=== PATIENT | female | born 1965 | race Caucasian/White ===

== ENCOUNTER 2019-02-17 01:18 | Emergency (ER) | payer BC, SELFPAY ==
[2019-02-17] MEDS ORDERED: Lorazepam 1 MG TAB ONE (01:55)
[2019-02-17] MEDS ORDERED: EPINEPHrine 1 MG/ML AMP ONE ×2 (01:55→01:59)
[2019-02-17 02:14] LABS: #Basophils 0.2 thou/uL (0.0-0.2); #Eosinphils 0.5 thou/uL (0.0-0.7); #Lymphocytes 3.9 thou/uL (1.20-3.40); #Monocytes 0.8 thou/uL (0.11-0.59); %Basophils 1.7 % (0.0-1.0); %Eosinophils 5.2 % (0.0-10.0); %Lymphocytes 41.8 % (21.0-51.0); %Monocytes 8.8 % (0.0-10.0); %Neutrophils 42.5 % (42.0-75.0); Hemoglobin 13.7 g/dL (12.0-16.0); Mean Corpuscular HGB CONC 31.3 g/dL (32.0-36.0); Mean Corpuscular Hemoglobin 31.2 pg (27.0-31.0); Mean Corpuscular Volume 99.7 fL (78.0-98.0); Mean Platelet Volume 7.1 fL (7.4-10.4); Platelet Count 337 thou/uL (130-400); RBC Distribution Width 11.3 % (11.5-14.5); Red Blood Cell (RBC) Count 4.38 mill/uL (4.20-5.40); White Blood Cell (WBC) Count 9.4 thou/uL (4.8-10.8)
[2019-02-17 02:36] LABS: ALT (SGPT) 16 U/L (8-55); AST (SGOT) 13 U/L (5-34); Albumin 4.3 g/dL (3.5-5.0); Alkaline Phosphatase 107 U/L (40-110); Anion Gap 12 mmol/L (10-20); BUN (Urea Nitrogen) 15 mg/dL (9.8-20.1); Bilirubin, Total 0.3 mg/dL (0.2-1.2); Calc. Creatinine Clearance 0 mL/min (70-130); Calcium 10.9 mg/dL (7.8-10.44); Carbon Dioxide 30 mmol/L (22-29); Chloride 102 mmol/L (98-107); Estimated GFR-MDRD 76; Globulin 3.2 g/dL (2.4-3.5); Glucose 99 mg/dL (70-105); Potassium 3.9 mmol/L (3.5-5.1); Protein, Total 7.5 g/dL (6.0-8.3); Sodium 140 mmol/L (136-145)
--- NOTE | 2019-02-17 07:42 | RAD ---
RADIOGRAPH CHEST 2 VIEWS: DATE: 02/17/2019 HISTORY: 53-year-old female with chest pain FINDINGS: There is no airspace density, pulmonary edema, pleural effusion, pneumothorax, or cardiomegaly. IMPRESSION: No acute cardiopulmonary findings.
== END 2019-02-17 03:00 | disposition home or self-care (01) ==
LOC: MADERS 01:18
DX: R07.89 Other chest pain (principal); F41.1 Generalized anxiety disorder; F17.290 Nicotine dependence, other tobacco product, uncomplicated
CPT/HCPCS: 71046; 80053; 84484; 85025; 85379; 93005; J0171